=== PATIENT | male | born 1965 | race Caucasian/White ===

== ENCOUNTER 2016-08-06 23:19 | Outpatient (CLI) | payer MEDICAID | END 2016-08-06 23:20 | disposition critical access hospital (66) | DX: S09.90XA Unspecified injury of head, initial encounter (principal); V47.5XXA Car driver injured in collision with fixed or stationary object in traffic accident, initial encounter; Y92.414 Local residential or business street as the place of occurrence of the external cause | CPT/HCPCS: A0425; A0427 ==

== ENCOUNTER 2016-08-06 23:37 | Emergency (ER) | payer MEDICAID ==
[2016-08-07] MEDS ORDERED: TETANUS/DIPHTHERIA/PERTUSSIS 0.5 ML SYRINGE IM ONE ×2 (00:28→00:32)
[2016-08-07] MEDS ORDERED: IOPAMIDOL-300 100 ML VIAL IVP ONE (03:06)
== END 2016-08-07 03:25 | disposition home or self-care (01) ==
DX: S09.90XA Unspecified injury of head, initial encounter (principal); S00.81XA Abrasion of other part of head, initial encounter; S63.501A Unspecified sprain of right wrist, initial encounter; S89.82XA Other specified injuries of left lower leg, initial encounter; V47.0XXA Car driver injured in collision with fixed or stationary object in nontraffic accident, initial encounter; Z23 Encounter for immunization; R03.0 Elevated blood-pressure reading, without diagnosis of hypertension; F17.200 Nicotine dependence, unspecified, uncomplicated; K80.20 Calculus of gallbladder without cholecystitis without obstruction; Z86.73 Personal history of transient ischemic attack (TIA), and cerebral infarction without residual deficits
CPT/HCPCS: 36415; 70450; 71275; 72125; 73110; 73564; 74177; 80053; 80306; 80320; 81003; 83690; 85025; 90471; 90715; 99284; 99285; Q9967

== ENCOUNTER 2017-03-07 07:32 | Outpatient (CLI) | payer MEDICAID | END 2017-03-07 07:33 | disposition critical access hospital (66) | LOC: EMS 07:32 | PROVIDERS: ATTEND Surgery | DX: R20.0 Anesthesia of skin (principal); R53.1 Weakness | CPT/HCPCS: A0425; A0429 ==

== ENCOUNTER 2017-03-07 07:53 | Emergency (ER) | payer MEDICAID ==
[2017-03-07 08:05] VITALS: BP 115/91
--- NOTE | 2017-03-07 08:12 | ED Physician Documentation ---
PD HPI FOCAL NEURO - Stated complaint Stated Complaint: HAND NUMB - Chief complaint Chief Complaint: Ext Problem - History obtained from History obtained from: Patient - History of Present Illness Timing - onset: Last night Timing - duration: Hours (8) Timing - details: Abrupt onset (he had been sleeping and awoke with right arm weakness from shoulder down to fingers. No weakness of leg, face. No denies similar prior episodes.), Still present Severity of deficit: Moderate Weakness: Arm, Hand, Right. No: Face, Leg Numbness: Arm, Hand, Right. No: Face, Leg Associated symptoms: No: Headache, Nausea / vomiting, Syncope, Fall, Head injury Contributing factors: negative: Anticoagulated, Vascular dz Baseline status: positive: A&OX3, ambulatory, indep Similar symptoms before: Has not had sx before Recently seen: Not recently seen Review of Systems Constitutional: denies: Fever, Chills Cardiac: denies: Chest pain / pressure, Palpitations, Pedal edema, Calf pain Respiratory: denies: Dyspnea, Cough, Wheezing GI: denies: Vomiting, Diarrhea, Bloody / black stool Skin: denies: Rash, Lesions Neurologic: denies: Difficulty speaking, Near syncope, Altered mental status, Headache, Head injury PD PAST MEDICAL HISTORY - Past Medical History Cardiovascular: None Respiratory: None Neuro: None Endocrine/Autoimmune: None Psych: Depression, Anxiety, Other - Past Surgical History Past Surgical History: No - Present Medications Home Medications: Ambulatory Orders Medication Instructions Recorded Confirmed QUEtiapine [SEROquel] 1 tab PO DAILY 08/06/16 08/06/16 - Allergies Allergies/Adverse Reactions: Allergies Allergy/AdvReac Type Severity Reaction Status Date / Time No Known Drug Allergies Allergy Verified 08/06/16 23:55 - Living Situation Living Situation: reports: With family Living Arrangement: reports: At home - Social History Does the pt smoke?: Yes Smoking Status: Current every day smoker Does the pt drink ETOH?: Yes Does the pt have substance abuse?: No - Immunizations Immunizations are current?: Yes - POLST Patient has POLST: No PD ED PE NORMAL - Vitals Vital signs reviewed: Yes - General General: Alert and oriented X 3, Well developed/nourished, Other (smell of alcohol on breath, but able to talk sentences and ambulatory without ataxia. Supporting right arm with the other hand. 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 ) - Psych Psych: No: Normal affect (he is anxious about his arm being weak. ) Results - Vitals Vitals: Vital Signs - 24 hr 03/07/17 07:59 Temperature 36.6 C Heart Rate 76 Respiratory 16 Rate Blood Pressure 115/91 H O2 Saturation 98 Oxygen O2 Source Room air - Labs Labs: Laboratory Tests 03/07/17 03/07/17 08:59 08:59 WBC 9.9 RBC 4.98 Hgb 15.4 Hct 45.6 MCV 91.6 MCH 30.9 MCHC 33.7 RDW 13.7 Plt Count 257 MPV 8.5 Neut # 4.8 Lymph # 3.8 H [place] # 0.7 Eos # 0.3 Baso # 0.1 Absolute Nucleated RBC 0.00 Nucleated RBC % 0.0 Sodium 139 Potassium 3.9 Chloride 105 Carbon Dioxide 22 Anion Gap 12.0 BUN 9 Creatinine 0.6 Estimated GFR (MDRD) 143 Glucose 91 Calcium 9.1 Magnesium 2.2 Total Bilirubin 0.3 AST 17 ALT 13 Alkaline Phosphatase 46 Total Protein 7.8 Albumin 4.4 Globulin 3.4 Albumin/Globulin Ratio 1.3 Lipase 14 L PD MEDICAL DECISION MAKING - ED course Complexity details: reviewed results, considered differential (seems brachial nerve palsy, presume from malposition. He seems intoxicated and says he drinks regularly, with onset during sleep, so presume tractioned shoulder during sleep. No other deficitis (face, leg) and does not seem central cause. ), d/w patient Departure - Departure Disposition: 01 Home, Self Care Clinical Impression: Brachial plexus palsy Condition: Stable Record reviewed to determine appropriate education?: Yes Instructions: Palsy Brachial Plexus Ch Follow-Up: Francie Giron, PHILOSOPHY INSTRUCTOR [Primary Care Provider] - Comments: Use a sling for the arm for the next few days. This seems like a nerve irritation which commonly was from malposition during sleep. Usually this will take a few days to improve. Try not to move her shoulder around excessively as I will continue stretching the nerves in the shoulder. Recheck with your primary care if not improved over the next 2-3 days. Discharge Date/Time: 03/07/17 09:24
[2017-03-07 09:04] LABS: BASOPHILS # (AUTO) 0.1 10^3/uL (0.0-0.1); BASOPHILS % (AUTO) 1.5 %; EOSINOPHILS # (AUTO) 0.3 10^3/uL (0.0-0.7); EOSINOPHILS % (AUTO) 3.4 %; HCT - HEMATOCRIT 45.6 % (42.0-52.0); HGB - HEMOGLOBIN 15.4 g/dL (14.0-18.0); LYMPHOCYTES # (AUTO) 3.8 10^3/uL (1.5-3.5); LYMPHOCYTES % (AUTO) 38.7 %; MEAN CORPUSCULAR HEMOGLOBIN 30.9 pg (27.0-31.0); MEAN CORPUSCULAR HGB CONC 33.7 g/dL (32.0-36.0); MEAN CORPUSCULAR VOLUME 91.6 fL (80.0-94.0); MEAN PLATELET VOLUME 8.5 fL (7.4-11.4); MONOCYTES # (AUTO) 0.7 10^3/uL (0.0-1.0); MONOCYTES % (AUTO) 7.4 %; NEUTROPHILS # (AUTO) 4.8 10^3/uL (1.5-6.6); RED BLOOD COUNT 4.98 10^6/uL (4.70-6.10); RED CELL DISTRIBUTION WIDTH 13.7 % (12.0-15.0); UNCORRECTED WHITE BLOOD COUNT 9.9 x10^3/uL; WHITE BLOOD COUNT 9.9 x10^3/uL (4.8-10.8)
[2017-03-07 09:17] LABS: ALBUMIN/GLOBULIN RATIO 1.3 (1.0-2.2); BILIRUBIN,TOTAL 0.3 mg/dL (0.2-1.0); CALCIUM 9.1 mg/dL (8.5-10.3); CREATININE 0.6 mg/dL (0.6-1.2); MAGNESIUM 2.2 mg/dL (1.7-2.8); POTASSIUM 3.9 mmol/L (3.5-5.0); TOTAL PROTEIN 7.8 g/dL (6.7-8.2)
== END 2017-03-07 09:24 | disposition home or self-care (01) ==
LOC: EDUNIT# → ED 07:53
DX: G54.0 Brachial plexus disorders (principal); F17.200 Nicotine dependence, unspecified, uncomplicated
CPT/HCPCS: 36415; 80053; 83690; 83735; 85025; 99283

== ENCOUNTER 2017-07-19 18:59 | Inpatient (IN) | payer SELFPAY ==
--- NOTE | 2017-07-19 19:34 | ED Physician Documentation ---
PD HPI CHEST PAIN - Stated complaint Stated Complaint: POSS CARDIAC ISSUE - Chief complaint Chief Complaint: Cardiac - History obtained from History obtained from: Patient - History of Present Illness Timing - onset: How many days ago (He had onset 3 days ago of some substernal chest pain associated with a feeling of lightheadedness and some palpitations and feeling the heart rate fast. This is been intermittent in severity over the last 3 days. However he has had consistent feeling of his heart rate going fast. He has had general lightheadedness. He has not had any syncope. Prior to that he had had upper respiratory infection with significant coughing, nausea , congestion and less appetite. He has had upper respiratory symptoms which she attributed to a flu for about 3 weeks total with the cough being prominent in the last week. He does not have any history of irregular heartbeats in the past.) Timing - onset during: Light activity Timing - duration: Days (3) Timing - details: Abrupt onset, Still present, Waxing and waning Quality: Tightness, Aching. No: Pressure Location: Substernal Radiation: Back Improved by: No: Rest Worsened by: Exertion Associated symptoms: Feeling faint / dizzy, General Weakness, Palpitations, Cough. No: Shortness of air, Nausea, Vomiting Similar symptoms before: Has not had sx before Recently seen: Not recently seen Review of Systems Constitutional: reports: Chills, Myalgias, Fatigue. denies: Fever Nose: reports: Congestion. denies: Rhinorrhea / runny nose Throat: denies: Sore throat Cardiac: reports: Chest pain / pressure, Palpitations. denies: Pedal edema, Calf pain Respiratory: reports: Cough, Wheezing. denies: Dyspnea GI: reports: Nausea. denies: Abdominal Pain, Vomiting, Diarrhea : denies: Dysuria, Frequency Skin: denies: Rash Musculoskeletal: denies: Back pain, Extremity swelling Neurologic: reports: Generalized weakness. denies: Focal weakness, Numbness, Near syncope Psychiatric: reports: Anxiety, Insomnia Endocrine: denies: Weight loss PD PAST MEDICAL HISTORY - Past Medical History Cardiovascular: None Respiratory: None Neuro: None Endocrine/Autoimmune: None Psych: Depression, Anxiety, Other - Past Surgical History Past Surgical History: No - Present Medications Home Medications: Ambulatory Orders Medication Instructions Recorded Confirmed QUEtiapine [SEROquel] 1 tab PO DAILY 08/06/16 08/06/16 Dextroamphetamine/Amphetamine 07/19/17 [Adderall 20 mg Tablet] - Allergies Allergies/Adverse Reactions: Allergies Allergy/AdvReac Type Severity Reaction Status Date / Time No Known Drug Allergies Allergy Verified 07/19/17 19:20 - Social History Does the pt smoke?: Yes Smoking Status: Current every day smoker Does the pt drink ETOH?: Yes Does the pt have substance abuse?: No - Family History Family history: denies: CAD, Venous thromboembolism - Immunizations Immunizations are current?: Yes - POLST Patient has POLST: No PD ED PE NORMAL - Vitals Vital signs reviewed: Yes - General General: Alert and oriented X 3, No acute distress (but is somewhat anxious), Well developed/nourished - HEENT HEENT: Ears normal, Pharynx benign. No: Moist mucous membranes - Neck Neck: Supple, no meningeal sign, No adenopathy - Cardiac Cardiac: No murmur. No: RRR (fast rate 160-180 and irregular. ) - Respiratory Respiratory: Clear bilaterally - Abdomen Abdomen: Soft, Non tender - Male Male : Deferred - Rectal Rectal: Deferred - Back Back: No CVA TTP - Derm Derm: Normal color, Warm and dry, No rash - Extremities Extremities: No deformity, No tenderness to palpate, Normal ROM s pain, No edema , No calf tenderness / cord - Neuro Neuro: Alert and oriented X 3, No motor deficit, Normal speech - Psych Psych: Normal mood. No: Normal affect (moderately anxious) Results - Vitals Vitals: Vital Signs - 24 hr 07/19/17 07/19/17 07/19/17 19:08 20:00 20:05 Temperature 37.2 C Heart Rate 180 H 136 H 159 H Respiratory 20 20 20 Rate Blood Pressure 131/96 H 123/79 126/93 H O2 Saturation 97 100 100 07/19/17 07/19/17 07/19/17 20:10 20:20 20:25 Temperature Heart Rate 150 H 137 H 128 H Respiratory 20 18 19 Rate Blood Pressure 128/74 128/93 H 126/87 H O2 Saturation 99 99 100 07/19/17 07/19/17 07/19/17 20:40 20:45 20:50 Temperature Heart Rate 119 H 113 H 130 H Respiratory 20 18 21 Rate Blood Pressure 112/82 H 119/95 H 114/86 H O2 Saturation 100 99 100 07/19/17 07/19/17 20:55 21:46 Temperature Heart Rate 111 H 106 H Respiratory 20 18 Rate Blood Pressure 115/82 H 111/79 O2 Saturation 99 95 Oxygen O2 Source Room air - EKG (time done) 19:16 Rate: Rate (enter#) (163) Rhythm: Atrial fibrillation [place]: Normal QRS: Normal Ischemia: Normal ST segments. No: ST elevation c/w ischemia, ST depression, T wave inversion Compare to prior EKG: Old EKG unavailable - Labs Labs: Laboratory Tests 07/19/17 07/19/17 07/19/17 19:55 19:55 19:55 WBC RBC Hgb Hct MCV MCH MCHC RDW Plt Count MPV Neut # Lymph # [place] # Eos # Baso # Absolute Nucleated RBC Nucleated RBC % Sodium 139 Potassium 3.6 Chloride 102 Carbon Dioxide 25 Anion Gap 12.0 BUN 14 Creatinine 0.6 Estimated GFR (MDRD) 142 Glucose 94 Calcium 9.5 Magnesium 1.6 L Total Bilirubin 0.9 AST 17 ALT 12 Alkaline Phosphatase 40 L Troponin I < 0.04 B-Natriuretic Peptide 96 Total Protein 7.7 Albumin 4.2 Globulin 3.5 Albumin/Globulin Ratio 1.2 Lipase < 10 L 07/19/17 20:19 WBC 13.3 H RBC 4.81 Hgb 14.4 Hct 43.7 MCV 90.9 MCH 30.0 MCHC 33.0 RDW 14.3 Plt Count 212 MPV 10.0 Neut # 7.0 H Lymph # 4.2 H [place] # 1.6 H Eos # 0.3 Baso # 0.3 H Absolute Nucleated RBC 0.02 Nucleated RBC % 0.2 Sodium Potassium Chloride Carbon Dioxide Anion Gap BUN Creatinine Estimated GFR (MDRD) Glucose Calcium Magnesium Total Bilirubin AST ALT Alkaline Phosphatase Troponin I B-Natriuretic Peptide Total Protein Albumin Globulin Albumin/Globulin Ratio Lipase - Rads (name of study) chest Radiology: Prelim report reviewed (no acute process; some hyperinflation c/w lung disease) PD MEDICAL DECISION MAKING - ED course Complexity details: considered differential (he is not in failure and no ischemic changes on ECG/Troponin. Heart rate slowed with IV meds and will have some regular beats at times, but does nto convert. Heart rate down to about 100- 110, still irregular, and BP is good. He is stable at this point. Needs further treatment. Given the likely 3 day duration of this, I would not do cardioversion at this time without ECHO or such. ), d/w patient Departure - Departure Disposition: ED Place in Observation Clinical Impression: Atrial fibrillation with rapid ventricular response, Hypokalemia, Hypomagnesemia Upper respiratory infection Qualifiers: URI type: unspecified URI Qualified Code(s): J06.9 - Acute upper respiratory infection, unspecified Condition: Stable Record reviewed to determine appropriate education?: Yes
[2017-07-19] MEDS ORDERED: diltiaZEM INJ 5 MG/ML VIAL IVP STA ×3 (19:49→21:30)
[2017-07-19] MEDS ORDERED: SODIUM CHLORIDE 0.9% 1,000 ML IV ONE ×3 (19:49→21:55)
[2017-07-19] MEDS ORDERED: LORazepam 2 MG/ML VIAL IVP STA (19:50)
[2017-07-19 20:05] LABS: BASOPHILS # (AUTO) 0.3 10^3/uL (0.0-0.1); BASOPHILS % (AUTO) 2.2 %; EOSINOPHILS # (AUTO) 0.3 10^3/uL (0.0-0.7); EOSINOPHILS % (AUTO) 2.1 %; HGB - HEMOGLOBIN 14.4 g/dL (14.0-18.0); LYMPHOCYTES # (AUTO) 4.2 10^3/uL (1.5-3.5); LYMPHOCYTES % (AUTO) 31.2 %; MEAN CORPUSCULAR VOLUME 90.9 fL (80.0-94.0); MONOCYTES # (AUTO) 1.6 10^3/uL (0.0-1.0); MONOCYTES % (AUTO) 12.2 %; NEUTROPHILS % (AUTO) 52.3 %; PLT - PLATELET COUNT 212 10^3/uL (130-450); RED BLOOD COUNT 4.81 10^6/uL (4.70-6.10); RED CELL DISTRIBUTION WIDTH 14.3 % (12.0-15.0); WHITE BLOOD COUNT 13.3 x10^3/uL (4.8-10.8)
[2017-07-19 20:23] LABS: ALBUMIN 4.2 g/dL (3.2-5.5); ALBUMIN/GLOBULIN RATIO 1.2 (1.0-2.2); ALKALINE PHOSPHATASE 40 IU/L (42-121); ALT ALANINE AMINOTRANSFERASE 12 IU/L (10-60); AST ASPARTATE AMINOTRANSFERASE 17 IU/L (10-42); BILIRUBIN,TOTAL 0.9 mg/dL (0.2-1.0); BUN - BLOOD UREA NITROGEN 14 mg/dL (6-20); CALCIUM 9.5 mg/dL (8.5-10.3); CARBON DIOXIDE - CO2 25 mmol/L (21-32); CHLORIDE 102 mmol/L (101-111); CREATININE 0.6 mg/dL (0.6-1.2); GFR - MDRD 142 (>89); GLUCOSE 94 mg/dL (70-100); LIPASE < 10 U/L (22-51); MAGNESIUM 1.6 mg/dL (1.7-2.8); SODIUM 139 mmol/L (135-145); TOTAL PROTEIN 7.7 g/dL (6.7-8.2)
[2017-07-19] MEDS ORDERED: MAGNESIUM SULFATE 2 GRAM 2 GM/50 ML BAG IV ONE (20:26)
[2017-07-19] MEDS ORDERED: POTASSIUM BICARB 25 MEQ TABLET PO STA (20:26)
--- NOTE | 2017-07-19 20:40 | XRAY Preliminary Report ---
Exam: XR CHEST 1 VIEW X-RAY IMPRESSION: No acute cardiopulmonary abnormality with findings suggestive of COPD. [facility] SITE ID: [id number]
--- NOTE | 2017-07-19 20:43 | XRAY Report ---
EXAM: CHEST RADIOGRAPHY EXAM DATE: 07/19/2017 08:04 PM. CLINICAL HISTORY: Cough and dyspnea; new onset atrial fibrillation. COMPARISON: CTA of the chest, abdomen and pelvis 08/07/2016. TECHNIQUE: 1 view. FINDINGS: Lungs/Pleura: No focal consolidation. Lung volumes are large with flattening of the diaphragm suggest jennifer of COPD. Minimal scarring at the apices, right greater than left. No significant pleural effusion . No pneumothorax. Mediastinum: Within exam limitations, the cardiomediastinal contour is normal. Other: None. IMPRESSION: No acute cardiopulmonary abnormality with findings suggestive of COPD. [facility] Referring Provider Line: [phone] SITE ID: [id number]
[2017-07-19] MEDS ORDERED: SODIUM CHLORIDE FLUSH 0.9% 10 ML SYRINGE IVP PRN (22:05)
[2017-07-19] MEDS ORDERED: QUEtiapine 25 MG TABLET PO PRN (22:09)
[2017-07-19] MEDS ORDERED: DIGOXIN 500 MCG/2 ML AMP IVP STA (22:11)
--- NOTE | 2017-07-19 22:22 | HISTORY & PHYSICAL EXAMINATION ---
Chief Complaint - Chief Complaint Chief Complaint: Dizziness, shortness of breath, and chest palpitations. History of Present Illness - Admitted From Admitted From:: Home - History Obtained From Records Reviewed: Yes History obtained from: Patient - History of Present Illness HPI Comment/Other: Mr. Sony Looney is a very pleasant 52-year-old gentleman who has a history of some shortness of breath and dyspnea for several weeks. This past Saturday he experienced some new chest pain upon awakening and he has had a significant cough for most of the month now. Patient also had upper respiratory infection symptoms last week. He came to the [facility] emergency department this afternoon/evening and was found to be in new onset atrial fibrillation with rates as high as the 180s. History - Past Medical History Cardiovascular: reports: None Respiratory: reports: None Neuro: reports: None Endocrine/Autoimmune: reports: None GI: reports: None : reports: None HEENT: reports: None Psych: reports: Depression, Anxiety, Other Musculoskeletal: reports: None Derm: reports: None MRSA Hx?: No - POLST Patient has POLST: No Meds/Allgy - Home Medications Home Medications: Ambulatory Orders Medication Instructions Recorded Confirmed QUEtiapine [SEROquel] 1 tab PO DAILY 08/06/16 08/06/16 Dextroamphetamine/Amphetamine 07/19/17 [Adderall 20 mg Tablet] - Allergies Allergies/Adverse Reactions: Allergies Allergy/AdvReac Type Severity Reaction Status Date / Time cephalexin [From Keflex] AdvReac Nausea Verified 07/20/17 00:52 Review of Systems - Constitutional Constitutional: reports: Fatigue. denies: Fever, Chills, Malaise, Weakness, Night sweats - Eyes Eyes: denies: Pain, Irritation, Blurred vision, Dipolpia - Ears, Nose & Throat Ears, Nose & Throat: denies: Ear pain, Hearing loss, Hearing aids, Tinnitus, Vertigo, Nasal pain, Nasal discharge - Cardiovascular Cariovascular: reports: Irregular heart rate, Palpitations, Exertional dyspnea. denies: Chest pain, Edema, Lightheadedness, Syncope - Respiratory Respiratory: reports: SOB with exertion. denies: Cough, Sputum production, Wheezing, Snoring, Hemoptysis, Orthopnea, SOB at rest - Gastrointestinal Gastrointestinal: denies: Abdominal pain, Abdominal distention, Constipation, Diarrhea, Change in bowel habits, Rectal bleeding - Genitourinary Genitourinary: denies: Dysuria, Frequency, Urgency, Hematuria - Musculoskeletal Musculoskeletal: denies: Muscle pain, Back pain, Muscle aches, Stiffness - Integumentary Integumentary: denies: Rash, Pruritis, Lesions, Dryness - Neurological Neurological: denies: General weakness, Focal weakness, Headache, Dizziness - Psychiatric Psychiatric: denies: Depression, Anxiety, Suicidal, Hallucinations - Endocrine Endocrine: denies: Polyuria, Polydypsia, Polyphagia - Hematologic/Lymphatic Hematologic/Lymphatic: denies: Anemia, Bruising, Lymphadenopathy - All Other Systems All Other Systems: reports: Reviewed and negative Exam - Vital Signs Reviewed Vital Signs: Yes Vital Signs: Vital Signs x48h Temp Pulse Resp BP Pulse Ox 07/19/17 22:13 86 20 105/86 H 98 07/19/17 21:46 106 H 18 111/79 95 07/19/17 20:55 111 H 20 115/82 H 99 07/19/17 20:50 130 H 21 114/86 H 100 07/19/17 20:45 113 H 18 119/95 H 99 07/19/17 20:40 119 H 20 112/82 H 100 07/19/17 20:25 128 H 19 126/87 H 100 07/19/17 20:20 137 H 18 128/93 H 99 07/19/17 20:10 150 H 20 128/74 99 07/19/17 20:05 159 H 20 126/93 H 100 07/19/17 20:00 136 H 20 123/79 100 07/19/17 19:08 37.2 C 180 H 20 131/96 H 97 - Physical Exam General Appearance: positive: No acute distress, Alert Eyes Bilateral: positive: Normal inspection, PERRL, EOMI, No lid inflammation, Conjunctivae nml, No scleral icterus ENT: positive: ENT inspection nml, Pharynx nml, No signs of dehydration Neck: positive: Nml inspection, Thyroid nml, No JVD, Trachea midline. negative : Thyromegaly Respiratory: positive: Chest non-tender, No respiratory distress, Breath sounds nml. negative: Wheezes, Rales, Rhonchi Cardiovascular: positive: No murmur, No gallop, Irregularly irregular Peripheral Pulses: positive: 2+ Abdomen: positive: Non-tender, No organomegaly, Nml bowel sounds, No distention. negative: Guarding, Rebound Back: positive: Nml inspection. negative: CVA tenderness (R), CVA tenderness (L ) Skin: positive: Color nml, No rash, Warm, Dry. negative: Cyanosis Extremities: positive: Non-tender, Full ROM, Nml appearance, No pedal edema Neurologic/Psychiatric: positive: Oriented x3, CN's nml (2-12), Motor nml, Sensation nml, Mood/affect nml Conclusion/Plan - Problem List (1) Atrial fibrillation with rapid ventricular response Conclusion/Plan: This is a new condition for the patient. He has received multiple doses of diltiazem in the emergency department and this has helped with his rate control however he still remains in atrial fibrillation. I will load him on digoxin and monitor him closely for signs of conversion to a sinus rhythm. There are no signs of any type of heart failure, and his only other abnormalities at this time are an elevated white blood cell count which may be related to the new onset atrial fibrillation (as a stress response) and a slightly low magnesium level. I will correct the magnesium and will monitor the patient and the patient's white blood cell count for signs of infection. (2) Hypomagnesemia Conclusion/Plan: WIll correct. Doubt that this is cause of the new onset Afib. (3) Anxiety, generalized Conclusion/Plan: The patient reportedly takes Adderall for anxiety, suggesting that he may have ADD. At any rate I believe that giving Adderall to a patient who is newly in atrial fibrillation may be contraindicated. Will monitor him closely and if he has complaints of anxiety we will give him low-dose Seroquel (which he takes at home at bedtime for sleep). - Lab Results Lab results reviewed: Yes Fish Bones: 07/19/17 20:19 07/19/17 19:55 - Diagnostic Imaging Results Diagnostic Imaging Results: positive: Final report reviewed Diagnostic Imaging Results Comments: EXAM: CHEST RADIOGRAPHY EXAM DATE: 07/19/2017 08:04 PM. CLINICAL HISTORY: Cough and dyspnea; new onset atrial fibrillation. COMPARISON: CTA of the chest, abdomen and pelvis 08/07/2016. TECHNIQUE: 1 view. FINDINGS: Lungs/Pleura: No focal consolidation. Lung volumes are large with flattening of the diaphragm suggestive of COPD. Minimal scarring at the apices, right greater than left. No significant pleural effusion. No pneumothorax. Mediastinum: Within exam limitations, the cardiomediastinal contour is normal. Other: None. IMPRESSION: No acute cardiopulmonary abnormality with findings suggestive of COPD. - EKG Results EKG Interpreted Independently: Yes EKG Comparison: Changed from prior EKG Core Measures - Anticipated LOS I expect patient to be DC'd or transferred within 96 hours.: Yes - DVT/VTE - Prophylaxis VTE/DVT Device ordered at admit?: Yes
[2017-07-19] MEDS: D5.45NS W/20 MEQ KCL 1,000 ML IV SCH (23:51)
[2017-07-20] MEDS: SODIUM CHLORIDE FLUSH 0.9% 10 ML SYRINGE IVP SCH ×2 (05:25→10:20)
[2017-07-20] MEDS ORDERED: diltiaZEM CD 120 MG CAPSULE PO SCH (09:00)
[2017-07-20] MEDS ORDERED: POLYETHYLENE GLYCOL 3350 17 GM PACKET PO SCH (09:00)
[2017-07-20] MEDS: NICOTINE 21 MG PATCH TOP SCH ×2 (09:26→10:20)
[2017-07-20] MEDS: D5.45NS W/20 MEQ KCL 1,000 ML IV SCH (10:20)
--- NOTE | 2017-07-20 15:27 | Discharge Plan ---
Discharge Plan Disposition: Home, Self Care Condition: Stable Prescriptions: diltiaZEM [Cardizem] 60 mg PO ONCE PRN #30 tablet PRN Reason: Per Physician Order Diet: Regular Activity Restrictions: No Restrictions Shower Restrictions: No Driving Restrictions: No Instruction Topics: Atrial Fibrillation Additional Instructions or Follow Up instructions: Stop taking Adderall until it is OK'd by your doctor to be restarted. Start taking 1 aspirin (baby dose of 81 mg) daily. You need an appointment for a stress test to evaluate for coronary artery disease. Your doctor should order this for you. Take 1 tablet of the new prescription (Cardizem), if you get the palpitations. 2 tablets a day is maximum amount you can take. No Smoking: If you smoke, Please STOP! Call for help. Follow-up with: Francie Giron FNP [Primary Care Provider] -
[2017-07-20 16:18] VITALS: BP 157/69
== END 2017-07-20 16:05 | disposition home or self-care (01) | DRG 310 ==
LOC: ED 18:59 → MS2 22:05
PROVIDERS: ADMIT Hospitalist; ATTEND Hospitalist
DX: I48.91 Unspecified atrial fibrillation (principal); E83.42 Hypomagnesemia; F41.9 Anxiety disorder, unspecified; E87.6 Hypokalemia; J06.9 Acute upper respiratory infection, unspecified
CPT/HCPCS: 36415; 71045; 80053; 83690; 83735; 83880; 84443; 84484; 85025; 93005; 93306; 96361; 96365; 96375; 96376; 99285

== ENCOUNTER 2017-08-20 00:36 | Emergency (ER) | payer SELFPAY ==
[2017-08-20 00:46] VITALS: BP 138/92
--- NOTE | 2017-08-20 01:24 | XRAY Report ---
EXAM: RIGHT SHOULDER RADIOGRAPHY EXAM DATE: 08/20/2017 01:07 AM. CLINICAL HISTORY: Fall, shoulder and proximal humerus pain. COMPARISON: None. TECHNIQUE: 3 views. FINDINGS: Bones: There is fracture of the proximal right humerus. Main fracture line is through the surgical ne ck. There is fracture extending through the tuberosities. Joints: No evidence of dislocation. Soft Tissues: No unexpected soft tissue findings. IMPRESSION: There is fracture of the proximal right humerus. The fracture line through the surgical n aga with extent through the tuberosities. No evidence of dislocation. [facility] Referring Provider Line: [phone] SITE ID: [id number]
--- NOTE | 2017-08-20 01:32 | ED Physician Documentation ---
PD HPI UPPER EXT INJURY - Stated complaint Stated Complaint: R ARM PAIN - Chief complaint Chief Complaint: Trauma Ext - History obtained from History obtained from: Patient - History of Present Illness Location: Right, Shoulder Type of injury: Fall Where injury occurred: Home Timing - onset: Today Timing - details: Abrupt onset, Still present Worsened by: Moving, Palpating Similar symptoms before: Has not had sx before Recently seen: Not recently seen - Additonal information Additional information: Patient is a 52 year old male presenting to the emergency department for abdominal pain. Patient was drinking when he fell backwards on his outstretched arm hurting his right shoulder. patient denies any other trauma. patient waited a few hours but his pain did not get any better so he came to the emergeny department for evaluation. Review of Systems Ten Systems: 10 systems reviewed and negative Musculoskeletal: reports: Extremity pain, Joint pain, Extremity swelling Neurologic: denies: Focal weakness, Numbness PD PAST MEDICAL HISTORY - Past Medical History Cardiovascular: None Respiratory: None Neuro: None Endocrine/Autoimmune: None GI: None : None HEENT: None Psych: Depression, Anxiety, Other Musculoskeletal: None Derm: None - Past Surgical History Past Surgical History: No - Present Medications Home Medications: Ambulatory Orders Medication Instructions Recorded Confirmed QUEtiapine [SEROquel] 50 mg PO DAILY 08/06/16 07/20/17 [email or web address] [Cardizem] 60 mg PO ONCE PRN #30 tablet 07/20/17 Dextroamphetamine/Amphetamine 40 mg PO DAILY 08/20/17 08/20/17 [Adderall 10 mg Tablet] Oxycodone HCl/Acetaminophen 1 - 2 each PO Q6H PRN #7 tablet 08/20/17 [Percocet 5-325 mg Tablet] - Allergies Allergies/Adverse Reactions: Allergies Allergy/AdvReac Type Severity Reaction Status Date / Time cephalexin [From Keflex] AdvReac Nausea Verified 08/20/17 00:46 - Social History Does the pt smoke?: Yes Smoking Status: Current every day smoker Does the pt drink ETOH?: Yes Does the pt have substance abuse?: No - Immunizations Immunizations are current?: Yes - POLST Patient has POLST: No PD ED PE EXPANDED - General General: Alert, In Pain - Extremities Extremities: Right shoulder (gross deformity of right upper extremity ) Results - Vitals Vitals: Vital Signs - 24 hr 08/20/17 00:42 Temperature 36.2 C L Heart Rate 81 Respiratory 22 Rate Blood Pressure 138/92 H O2 Saturation 98 Oxygen O2 Source Room air - Rads (name of study) shoulder Radiology: Final report received (humeral head fracture) PD MEDICAL DECISION MAKING - ED course Complexity details: reviewed old records, reviewed results, re-evaluated patient , considered differential, d/w patient, d/w business consultant ED course: patient was seen and examined at bedside. Imaging was ordered. When patient returned the results were reviewed and discussed with director of pupil personnel program ortho Dr. Moreno who recommended splinting and outpatient follow up. Patient smelled heavily of alcohol so sedative medications were not appropriate at this time. Prescriptions were written. and patient was placed in a shoulder immobilizer with additional elastic bandages. Patient required no further inpatient work up and was stable for discharge home. Departure - Departure Disposition: 01 Home, Self Care Clinical Impression: Humerus head fracture Condition: Good Instructions: ED Fx Upper Ext Follow-Up: Marco Moreno MD [Provider Admit Priv/Credential] - Prescriptions: Oxycodone HCl/Acetaminophen [Percocet 5-325 mg Tablet] 1 - 2 each PO Q6H PRN #7 tablet PRN Reason: pain Comments: Your symptoms today are being caused by a fractured humerus. You should wear the brace for comfort. You should ice your shoulder at least 4 times a day and try to keep it elevated. You should call the office tomorrow to schedule a follow up appointment. You can take tylenol for pain and an occasional percocet for breakthrough pain. You should return to the emergency department for loss of pulses, loss of feeling in your hand or uncontrollable symptoms. Discharge Date/Time: 08/20/17 01:52
== END 2017-08-20 01:52 | disposition home or self-care (01) ==
LOC: ED 00:36
DX: S42.294A Other nondisplaced fracture of upper end of right humerus, initial encounter for closed fracture (principal); W18.39XA Other fall on same level, initial encounter; Y92.009 Unspecified place in unspecified non-institutional (private) residence as the place of occurrence of the external cause; F17.200 Nicotine dependence, unspecified, uncomplicated
CPT/HCPCS: 99283

== ENCOUNTER 2017-08-20 02:31 | Emergency (ER) | payer SELFPAY ==
[2017-08-20 02:33] VITALS: BP 145/107
[2017-08-20] MEDS ORDERED: ACETAMINOPHEN 500 MG TABLET PO STA (02:35)
--- NOTE | 2017-08-20 02:39 | ED Physician Documentation ---
PD HPI UPPER EXT INJURY - Stated complaint Stated Complaint: R ARM PAIN - Chief complaint Chief Complaint: Trauma Ext - History obtained from History obtained from: Patient - History of Present Illness Location: Right, Shoulder, Arm Type of injury: Fall Where injury occurred: Home Timing - onset: Today Timing - details: Abrupt onset Worsened by: Moving, Palpating Similar symptoms before: Work up / diagnostics, Treatment Recently seen: Emergency Dept - Additonal information Additional information: Patient is a 52 year old male who was just diagnosed with a humeral head fracture and was discharged in a splint who checked back in because he wanted more pain medications. Patient smelled of alcohol and had prescription written for percocet. Patient had no other trauma in the meantime. Review of Systems Ten Systems: 10 systems reviewed and negative Musculoskeletal: reports: Extremity pain, Joint pain, Extremity swelling Neurologic: denies: Focal weakness, Numbness PD PAST MEDICAL HISTORY - Past Medical History Cardiovascular: None Respiratory: None Neuro: None Endocrine/Autoimmune: None GI: None : None HEENT: None Psych: Depression, Anxiety, Other Musculoskeletal: None Derm: None - Past Surgical History Past Surgical History: No - Present Medications Home Medications: Ambulatory Orders Medication Instructions Recorded Confirmed QUEtiapine [SEROquel] 50 mg PO DAILY 08/06/16 07/20/17 [email or web address] [Cardizem] 60 mg PO ONCE PRN #30 tablet 07/20/17 Dextroamphetamine/Amphetamine 40 mg PO DAILY 08/20/17 08/20/17 [Adderall 10 mg Tablet] Oxycodone HCl/Acetaminophen 1 - 2 each PO Q6H PRN #7 tablet 08/20/17 [Percocet 5-325 mg Tablet] - Allergies Allergies/Adverse Reactions: Allergies Allergy/AdvReac Type Severity Reaction Status Date / Time cephalexin [From Keflex] AdvReac Nausea Verified 08/20/17 00:46 - Social History Does the pt smoke?: Yes Smoking Status: Current every day smoker Does the pt drink ETOH?: Yes Does the pt have substance abuse?: No - Immunizations Immunizations are current?: Yes - POLST Patient has POLST: No PD ED PE NORMAL - Vitals Vital signs reviewed: Yes - General General: Alert and oriented X 3 - HEENT HEENT: Atraumatic - Neck Neck: No bony TTP - Cardiac Cardiac: RRR - Respiratory Respiratory: No respiratory distress - Abdomen Abdomen: Non distended - Neuro Neuro: Alert and oriented X 3 Eye Opening: Spontaneous Motor: Obeys Commands Verbal: Oriented GCS Score: 15 PD ED PE EXPANDED - Extremities Extremities: Right shoulder (right shoulder pain and deformity), Sensory intact , Vascular intact, Tendon intact Results - Vitals Vitals: Vital Signs - 24 hr 08/20/17 02:32 Temperature 36.4 C L Heart Rate 89 Respiratory 20 Rate Blood Pressure 145/107 H O2 Saturation 92 Oxygen O2 Source Room air PD MEDICAL DECISION MAKING - ED course Complexity details: reviewed old records, reviewed results, re-evaluated patient , considered differential, d/w patient ED course: Patient was seen and examined at bedside. Patient was told he would be treated with tylenol and an ice pack and he could fill his prescriptions in the morning after reaching full sobriety. Patient became agitated and threatening. Patient had a simple, non-displaced fracture and was stable for discharge with outpatient follow up. Departure - Departure Disposition: 01 Home, Self Care Clinical Impression: Humerus head fracture Condition: Good Instructions: ED Fx Upper Ext Follow-Up: Marco Moreno MD [Provider Admit Priv/Credential] - Comments: Your symptoms are being caused by a fracture in your arm. You should ice your arm and take tylenol as needed for pain and an occasional percocet for breakthrough pain. You should follow up with the orthopedic group in the morning for further evaluation and care. You should return to the emergency department for loss of pulses, numbness, tingling or new onset weakness. Discharge Date/Time: 08/20/17 02:46
== END 2017-08-20 02:46 | disposition home or self-care (01) ==
LOC: ED 02:31
DX: S42.294A Other nondisplaced fracture of upper end of right humerus, initial encounter for closed fracture (principal); W18.39XA Other fall on same level, initial encounter; Y92.009 Unspecified place in unspecified non-institutional (private) residence as the place of occurrence of the external cause; F17.200 Nicotine dependence, unspecified, uncomplicated
CPT/HCPCS: 73030; 99282; 99283; A9270

== ENCOUNTER 2017-12-14 15:51 | Emergency (ER) | payer OTHER ==
--- NOTE | 2017-12-14 16:26 | ED Physician Documentation ---
PD HPI BACK INJURY - Stated complaint Stated Complaint: BACK PX - History obtained from History obtained from: Patient - History of Present Illness Location: Lower (He was lifting a refrigerator and felt a pop in his low back with moderate mid low back pain that does not radiate. No weakness, numbness, or tingling of the saddle area or extremities. No incontinence. He has not had back problems before. This happened just prior to arrival around half an hour ago.) Review of Systems Constitutional: reports: Reviewed and negative Cardiac: reports: Reviewed and negative Respiratory: reports: Reviewed and negative PD PAST MEDICAL HISTORY - Past Medical History Cardiovascular: None Respiratory: None Endocrine/Autoimmune: None GI: None : None HEENT: None Psych: Depression, Anxiety, Other Musculoskeletal: None Derm: None - Past Surgical History Past Surgical History: No - Present Medications Home Medications: Ambulatory Orders Medication Instructions Recorded Confirmed QUEtiapine [SEROquel] 50 mg PO DAILY 08/06/16 07/20/17 [email or web address] [Cardizem] 60 mg PO ONCE PRN #30 tablet 07/20/17 Dextroamphetamine/Amphetamine 40 mg PO DAILY 08/20/17 08/20/17 [Adderall 10 mg Tablet] Oxycodone HCl/Acetaminophen 1 - 2 each PO Q6H PRN #7 tablet 08/20/17 [Percocet 5-325 mg Tablet] HYDROcod/ACETAM 5/325 [[place] 5/325] 1 - 2 ea PO Q6H PRN #15 tablet 12/14/17 Ibuprofen [Motrin] 800 mg PO Q8H PRN #30 tablet 12/14/17 - Allergies Allergies/Adverse Reactions: Allergies Allergy/AdvReac Type Severity Reaction Status Date / Time cephalexin [From Keflex] AdvReac Nausea Verified 08/20/17 00:46 - Social History Does the pt smoke?: Yes Smoking Status: Current every day smoker Does the pt drink ETOH?: Yes Does the pt have substance abuse?: No - Immunizations Immunizations are current?: Yes - POLST Patient has POLST: No PD ED PE NORMAL - Vitals Vital signs reviewed: Yes - General General: Alert and oriented X 3, No acute distress - Back Back: Other (Focally tender over I think L4. Otherwise no midline lumbar spine tenderness. The patient has equal and normal Achilles and patellar reflexes bilaterally. Normal sensation in all areas of the legs. Patient denies saddle anesthesia. Normal strength in flexion-extension at the ankles, knees, and flexion of the hips.) - Neuro Neuro: Alert and oriented X 3, Normal speech Results - Vitals Vitals: Vital Signs - 24 hr 12/14/17 15:57 Temperature 36.6 C Heart Rate 124 H Respiratory 18 Rate Blood Pressure 171/102 H O2 Saturation 98 Oxygen O2 Source Room air - Rads (name of study) LS XR Radiology: EMP read contemporaneously (L5 superior endplate compression fracture of unclear chronicity.) PD MEDICAL DECISION MAKING - Sepsis Event Vital Signs: Vital Signs - 24 hr 12/14/17 15:57 Temperature 36.6 C Heart Rate 124 H Respiratory 18 Rate Blood Pressure 171/102 H O2 Saturation 98 Oxygen O2 Source Room air Departure - Departure Disposition: 01 Home, Self Care Clinical Impression: Compression fracture of L5 lumbar vertebra Qualifiers: Encounter type: initial encounter Fracture type: closed Qualified Code(s): S32.050A - Wedge compression fracture of fifth lumbar vertebra, initial encounter for closed fracture Condition: Good Record reviewed to determine appropriate education?: Yes Instructions: ED Fx Comp Vertebral Prescriptions: HYDROcod/ACETAM 5/325 [[place] 5/325] 1 - 2 ea PO Q6H PRN #15 tablet PRN Reason: Pain Ibuprofen [Motrin] 800 mg PO Q8H PRN #30 tablet PRN Reason: PAIN &/OR FEVER Comments: Recheck with your doctor in a week, recheck blood pressure at that time as it was quite high today. Your blood pressure was elevated today on check into the emergency department. This does not mean that you have hypertension, it is a common phenomenon to come to the emergency department and have elevated blood pressure. I recommend that you see your primary care physician within the week to have it rechecked when you are feeling better. Forms: Activity restrictions
--- NOTE | 2017-12-14 17:02 | XRAY Report ---
Procedure Date: 12/14/2017 Accession Number: [id number] / [id number] Procedure: XR - Lumbar Spine 2 View CPT Code: FULL RESULT: EXAM: LUMBOSACRAL SPINE RADIOGRAPHY EXAM DATE: 12/14/2017 04:27 PM. CLINICAL HISTORY: Back injury. COMPARISONS: 08/07/2016. TECHNIQUE: 2 views. FINDINGS: There is mild compression of the L5 superior endplate, age-indeterminate but appears new from 2017. Vertebral body height is otherwise maintained. No subluxation. Mild lower lumbar disk degeneration and facet arthrosis. Right mid abdominal calcification may reflect a nonobstructing renal stone. IMPRESSION: Mild L5 superior endplate compression, age-indeterminate. Mild lower lumbar degenerative changes. RADIA
[2017-12-14 17:25] VITALS: BP 104/89
== END 2017-12-14 17:23 | disposition home or self-care (01) ==
LOC: ED 15:51
DX: S32.050A Wedge compression fracture of fifth lumbar vertebra, initial encounter for closed fracture (principal); X50.0XXA Overexertion from strenuous movement or load, initial encounter; Y99.0 Civilian activity done for income or pay; R03.0 Elevated blood-pressure reading, without diagnosis of hypertension; F17.200 Nicotine dependence, unspecified, uncomplicated
CPT/HCPCS: 1040M; 72100; 99283

== ENCOUNTER 2017-12-31 13:13 | Outpatient (CLI) | payer OTHER ==
--- NOTE | 2018-01-01 08:24 | DEXA Report ---
Procedure Date: 12/31/2017 Accession Number: [id number] / [id number] Procedure: DEX - Dexa Spine and/or Hip CPT Code: FULL RESULT: EXAM: Dexa Spine and/or Hip DATE: 12/31/2017 2:16 PM CLINICAL HISTORY: WEDGE COMPRESSION FRACTURE OF FIFTH LUMBAR VERTEBR TECHNIQUE: Dual energy x-ray absorptiometry (DXA) was performed on a [employer] System. Regions measured are the AP Spine, femoral neck, and if needed forearm. COMPARISON: None. In accordance with the International Society for Clinical Densitometry (ISCD) guidelines, data from previous exams may be reanalyzed using current recommendations and techniques. This is done to allow a more accurate basis for comparison with the current study. FINDINGS: The data for the lumbar spine is as follows: BMD (g/cm/cm) T-SCORE Z-SCORE REGION L1 0.865 -2.5 -1.6 L2 0.963 -2.3 -1.5 L3 0.956 -2.4 -1.5 L4 0.823 -3.5 -2.6 TOTAL 0.899 -2.7 -1.8 NOTE: All evaluable vertebrae are used for classification The data for the hip is as follows: BMD (g/cm/cm) T-SCORE Z-SCORE REGION Neck 0.828 -1.9 -0.8 TOTAL 0.723 -2.6 -1.9 NOTE: The femoral neck or total proximal femur, whichever is lowest, is used for classification. IMPRESSION: THE WHO CLASSIFICATION BASED ON THE INTERNATIONAL REFERENCE STANDARD IS OSTEOPOROSIS. THE FRACTURE RISK IS HIGH. RECOMMENDATION: Patients with diagnosis of osteoporosis or osteopenia should have regular bone mineral density assessment. For those eligible for Medicare, routine testing is allowed once every 2 years. Testing frequency can be increased for patients who have rapidly progressing disease or for those who are receiving medical therapy to restore bone mass. COMMENT: World Health Organization (WHO) definitions for osteoporosis and osteopenia: NORMAL BMD: T-score at -1.0 or higher, fracture risk is low OSTEOPENIA BMD: T-score between -1.0 and -2.5, fracture risk is increased. OSTEOPOROSIS BMD: T-score at -2.5 or lower, fracture risk is high. National Osteoporosis Foundation recommends: 1. Obtain adequate dietary calcium (at least 1200 mg per day) and vitamin D (400-800 international units per day). 2. Participate, as appropriate, in regular weightbearing and muscle-strengthening exercise. 3. Avoid tobacco use and reduce alcohol and caffeine intake. 4. For more detailed information see the website at www.NOF.org.
== END 2017-12-31 13:14 | disposition home or self-care (01) ==
LOC: DI 13:13
PROVIDERS: ATTEND Family Medicine
DX: S32.050D Wedge compression fracture of fifth lumbar vertebra, subsequent encounter for fracture with routine healing (principal); M54.5 Low back pain; M81.0 Age-related osteoporosis without current pathological fracture
CPT/HCPCS: 77080

== ENCOUNTER 2018-11-06 13:42 | Outpatient (CLI) | payer SELFPAY ==
--- NOTE | 2018-11-06 16:03 | XRAY Report ---
Reason: SOB X 6 WEEKS,COUGH,LOW GRAD FEVER Procedure Date: 11/06/2018 Accession Number: [id number] / [id number] Procedure: XR - Chest 2 View X-Ray CPT Code: 36105 FULL RESULT: EXAM: CHEST RADIOGRAPHY EXAM DATE: 11/06/2018 01:45 PM. CLINICAL HISTORY: Shortness of breath x 6 weeks ,cough, low grade fever. COMPARISON: CHEST 1 VIEW 07/19/2017 7:54 PM. TECHNIQUE: 2 views. FINDINGS: Lungs/Pleura: There is a new right upper lung cavity with air-fluid level which measures at least 8.5 cm in maximal dimension. A small amount of consolidation is seen in this region. Otherwise there is no consolidation. There is a trace right pleural effusion. No meaningful left pleural effusion. No pneumothorax. Lung volumes are high with flattened diaphragms suggestive of underlying COPD. Mediastinum: Heart and mediastinal contours are unremarkable. Other: None. IMPRESSION: New upper lobe cavitary lesion with air-fluid level. RADIA The call report notification system was initiated by Dr. Bruno Story at 03:59 PM on 11/06/2018. ADDENDUM: 11/06/18 16:15 The above call report findings were discussed with the Rakel Jessica the medical physics professor sulma [place] by Dr. Bruno Story at 04:15 PM on 11/06/2018.
== END 2018-11-06 13:43 | disposition home or self-care (01) ==
LOC: DI 13:42
PROVIDERS: ATTEND Physician Assistant Medical
DX: R91.1 Solitary pulmonary nodule (principal); R06.02 Shortness of breath; R05 Cough; R50.9 Fever, unspecified
CPT/HCPCS: 71046

== ENCOUNTER 2019-05-07 11:49 | Outpatient (CLI) | payer MEDICAID ==
[2019-05-07 18:49] LABS: BASOPHILS # (AUTO) 0.1 10^3/uL (0.0-0.1); EOSINOPHILS # (AUTO) 0.2 10^3/uL (0.0-0.7); EOSINOPHILS % (AUTO) 1.7 %; HGB - HEMOGLOBIN 14.9 g/dL (14.0-18.0); LYMPHOCYTES # (AUTO) 3.3 10^3/uL (1.5-3.5); LYMPHOCYTES % (AUTO) 30.3 %; MEAN CORPUSCULAR HEMOGLOBIN 32.7 pg (27.0-31.0); MEAN CORPUSCULAR HGB CONC 32.4 g/dL (32.0-36.0); MEAN CORPUSCULAR VOLUME 101.1 fL (80.0-94.0); MEAN PLATELET VOLUME 10.7 fL (7.4-11.4); MONOCYTES # (AUTO) 1.3 10^3/uL (0.0-1.0); MONOCYTES % (AUTO) 11.9 %; NEUTROPHILS # (AUTO) 5.9 10^3/uL (1.5-6.6); NEUTROPHILS % (AUTO) 54.6 %; PLT - PLATELET COUNT 249 10^3/uL (130-450); RED BLOOD COUNT 4.55 10^6/uL (4.70-6.10); RED CELL DISTRIBUTION WIDTH 15.5 % (12.0-15.0); WHITE BLOOD COUNT 10.8 x10^3/uL (4.8-10.8)
[2019-05-07 19:18] LABS: HEMOGLOBIN A1C 0.5 g/dL; HEMOGLOBIN A1C % 5.2 % (4.6-6.2)
[2019-05-07 19:21] LABS: ALBUMIN 4.1 g/dL (3.2-5.5); ALBUMIN/GLOBULIN RATIO 1.1 (1.0-2.2); ALKALINE PHOSPHATASE 84 IU/L (42-121); ALT ALANINE AMINOTRANSFERASE 52 IU/L (10-60); AST ASPARTATE AMINOTRANSFERASE 52 IU/L (10-42); BILIRUBIN,TOTAL 0.5 mg/dL (0.2-1.0); BUN - BLOOD UREA NITROGEN 10 mg/dL (6-20); CALCIUM 9.1 mg/dL (8.5-10.3); CARBON DIOXIDE - CO2 25 mmol/L (21-32); CHLORIDE 103 mmol/L (101-111); CHOL/HDL RATIO 2.1 (<5.0); CHOLESTEROL 210 mg/dL; CREATININE 0.7 mg/dL (0.6-1.2); GFR - MDRD 118 (>89); GLUCOSE 80 mg/dL (70-100); HDL CHOLESTEROL 102 mg/dL; LDL CHOLESTEROL,CALCULATED 85 mg/dL; LDL/HDL RATIO 0.8 (<3.6); SODIUM 142 mmol/L (135-145); VLDL CHOLESTEROL 23 mg/dL
== END 2019-05-07 23:59 | disposition home or self-care (01) ==
LOC: LAB.N 11:49
PROVIDERS: ATTEND Physician Assistant Medical
DX: F10.10 Alcohol abuse, uncomplicated (principal)
CPT/HCPCS: 36415; 80053; 80061; 83036; 83721; 84443; 85025

== ENCOUNTER 2019-05-15 16:05 | Outpatient (CLI) | payer MEDICAID | END 2019-05-15 16:06 | disposition critical access hospital (66) | LOC: EMS 16:05 | PROVIDERS: ATTEND Surgery | DX: R07.81 Pleurodynia (principal); R06.00 Dyspnea, unspecified; R03.1 Nonspecific low blood-pressure reading; R42 Dizziness and giddiness; R53.1 Weakness; W19.XXXA Unspecified fall, initial encounter; Y92.038 Other place in apartment as the place of occurrence of the external cause | CPT/HCPCS: A0425; A0429; A0999 ==

== ENCOUNTER 2019-05-15 16:25 | Emergency (ER) | payer MEDICAID ==
[2019-05-15] MEDS ORDERED: SODIUM CHLORIDE 0.9% 1,000 ML IV STA (16:41)
[2019-05-15] MEDS ORDERED: HYDROmorphone 1 MG/ML CARPUJECT IVP STA ×4 (16:41→20:07)
[2019-05-15] MEDS ORDERED: IOVERSOL 320 100 ML VIAL IVP ONE ×2 (16:50→17:40)
--- NOTE | 2019-05-15 16:51 | ED Physician Documentation ---
History of Present Illness - Stated complaint Stated Complaint: FALL - Chief complaint Chief Complaint: Trauma Abd - History obtained from History obtained from: Patient, EMS - History of Present Illness Timing: Today Pain level max: 8 Pain level now: 8 - Additonal information Additional information: 54-year-old male states that he tripped and fell landing on a glass coffee table injuring his left ribs. He states that he took himself to bed but the pain is worsened. Worse with movement and palpation. Nothing makes it better. He states he did hit his head, does not recall the event clearly. No abdominal pain. No neck or back pain. Review of Systems Ten Systems: 10 systems reviewed and negative Constitutional: denies: Fever, Chills Nose: denies: Rhinorrhea / runny nose, Congestion Cardiac: denies: Chest pain / pressure Respiratory: denies: Cough GI: denies: Vomiting, Diarrhea Skin: denies: Rash Musculoskeletal: denies: Neck pain, Back pain Neurologic: denies: Focal weakness, Numbness, Headache PD PAST MEDICAL HISTORY - Past Medical History Cardiovascular: None Respiratory: None Endocrine/Autoimmune: None GI: None : None HEENT: None Psych: Depression, Anxiety, Other Musculoskeletal: None Derm: None - Past Surgical History Past Surgical History: No - Present Medications Home Medications: Ambulatory Orders Medication Instructions Recorded Confirmed QUEtiapine [SEROquel] 50 mg PO DAILY 08/06/16 07/20/17 diltiaZEM [Cardizem] 60 mg PO ONCE PRN #30 tablet 07/20/17 Dextroamphetamine/Amphetamine 40 mg PO DAILY 08/20/17 08/20/17 [Adderall 10 mg Tablet] Oxycodone HCl/Acetaminophen 1 - 2 each PO Q6H PRN #7 tablet 08/20/17 [Percocet 5-325 mg Tablet] HYDROcod/ACETAM 5/325 [Glidden 5/325] 1 - 2 ea PO Q6H PRN #15 tablet 12/14/17 Ibuprofen [Motrin] 800 mg PO Q8H PRN #30 tablet 12/14/17 - Allergies Allergies/Adverse Reactions: Allergies Allergy/AdvReac Type Severity Reaction Status Date / Time cephalexin [From Keflex] AdvReac Nausea Verified 05/15/19 16:33 - Social History Does the pt smoke?: Yes Smoking Status: Current every day smoker Does the pt drink ETOH?: Yes Does the pt have substance abuse?: No - Immunizations Immunizations are current?: Yes - POLST Patient has POLST: No PD ED PE NORMAL - Vitals Vital signs reviewed: Yes - General General: Alert and oriented X 3, Other (Appears in pain) - HEENT HEENT: Atraumatic, PERRL, Moist mucous membranes, Pharynx benign - Neck Neck: Supple, no meningeal sign, No bony TTP - Cardiac Cardiac: RRR, Strong equal pulses - Respiratory Respiratory: No respiratory distress, Other (Tender to palpation on the left chest. 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, No motor deficit, No sensory deficit, Normal speech - Psych Psych: Normal mood, Normal affect Results - Vitals Vitals: Vital Signs - 24 hr 05/15/19 05/15/19 05/15/19 16:28 17:40 17:50 Temperature 37.1 C Heart Rate 130 H 115 H 112 H Respiratory 20 20 15 Rate Blood Pressure 133/107 H 117/92 H 106/96 H O2 Saturation 99 99 95 05/15/19 05/15/19 05/15/19 17:55 18:19 19:18 Temperature Heart Rate 112 H 124 H 111 H Respiratory 18 22 20 Rate Blood Pressure 117/98 H 111/99 H 104/94 H O2 Saturation 97 100 97 05/15/19 20:00 Temperature Heart Rate 105 H Respiratory 22 Rate Blood Pressure 101/57 L O2 Saturation 97 Oxygen O2 Source Room air - EKG (time done) 1634 Rate: Rate (enter#) (125) Rhythm: Sinus tachycardia [place]: Normal Intervals: Normal MN QRS: Normal Ischemia: Normal ST segments - Labs Labs: Laboratory Tests 05/15/19 05/15/19 05/15/19 17:08 17:08 19:22 WBC 13.8 H RBC 4.77 Hgb 15.7 Hct 47.4 MCV 99.4 H MCH 32.9 H MCHC 33.1 RDW 13.8 Plt Count 172 MPV 10.6 Neut # (Auto) 11.5 H Lymph # (Auto) 1.2 L Rabun # (Auto) 0.8 Eos # (Auto) 0.1 Baso # (Auto) 0.1 Absolute Nucleated RBC 0.00 Nucleated RBC % 0.0 Sodium 134 L Potassium 3.2 L Chloride 97 L Carbon Dioxide 25 Anion Gap 12.0 BUN 17 Creatinine 0.7 Estimated GFR (MDRD) 118 Glucose 115 H Calcium 9.0 Total Bilirubin 1.0 AST 72 H ALT 72 H Alkaline Phosphatase 81 Total Protein 7.5 Albumin 3.8 Globulin 3.7 Albumin/Globulin Ratio 1.0 Lipase 30 Ethyl Alcohol < 5.0 Blood Type O POSITIVE Antibody Screen NEGATIVE - Rads (name of study) Head CT Radiology: Prelim report reviewed, EMP read contemporaneously, See rad report (No acute traumatic intracranial abnormality. ) Cervical spine CT Radiology: Prelim report reviewed, EMP read contemporaneously, See rad report (IMPRESSION: 1. No acute cervical spine fracture or listhesis. 2. Degenerative changes, as above. 3. Partially visualized left-sided pneumothorax with extensive subcutaneous emphysema extending up the left neck. ) chest CT Radiology: Prelim report reviewed, EMP read contemporaneously, See rad report (1. Displaced left lateral seventh and eighth rib fractures with mild basilar pneumothorax and with chest wall defect communicating with large amount of left chest wall emphysema. 2. New cavitary abnormality of the right upper lobe concerning for neoplasm. 3. 2 column burst fracture at T8 with mild retropulsion, chronic in appearance) abd/pelvis CT Radiology: Prelim report reviewed, EMP read contemporaneously, See rad report (1. Contained grade II posterior splenic laceration without evidence of active extravasation. 2. Hepatic steatosis noted. 3. Large calcified gallstone. 4. High-grade proximal SMA stenosis noted. 5. Chronic superior endplate L5 compression fracture. 6. Bladder wall thickening noted. 7. Left lateral abdominal wall emphysema. See chest CT report. ) Procedures - Chest Tube (location) left other other Chest tube preparation: Consent obtained (verbal), Time out completed, Sterile prep and drape Chest tube location: Left, Intercostal space - enter (3), Other (mid clavicular) Chest tube size: 8 Chest tube return: Air Chest tube after care: Confirmed with xray, Pt tolerated well, Other (thoravent) PD MEDICAL DECISION MAKING - ED course Complexity details: reviewed results, re-evaluated patient, considered differential, d/w patient, d/w search consultant ED course: 54-year-old male status post a fall earlier today. Has multiple left-sided rib fractures, grade 2 splenic laceration. Also has a pneumothorax. Pigtail catheter was placed. Tolerated well. He also has a cavitary spiculated lesion in his right upper lobe, concerning for malignancy. Also has high-grade proximal SMA stenosis noted. Has chronic appearing spinal fractures. Patient would benefit from a trauma center. Therefore I contacted [facility] at 1830 for transfer. Patient graciously accepted by Dr. Bahena, trauma surgery at [facility] at 1907. COBRA forms completed. This document was made in part using voice recognition software. While efforts are made to proofread this document, sound alike and grammatical errors may occur. Departure - Departure Disposition: 02 Transfer Acute Care Hosp Clinical Impression: Pneumothorax on left Ribs, multiple fractures Qualifiers: Encounter type: initial encounter Fracture type: closed Laterality: left Qualified Code(s): S22.42XA - Multiple fractures of ribs, left side, initial encounter for closed fracture Splenic laceration Qualifiers: Encounter type: initial encounter Qualified Code(s): S36.039A - Unspecified laceration of spleen, initial encounter Compression fracture of T6 vertebra Qualifiers: Encounter type: initial encounter Qualified Code(s): S22.050A - Wedge compression fracture of T5-T6 vertebra, initial encounter for closed fracture Condition: Stable
[2019-05-15 17:13] LABS: BASOPHILS # (AUTO) 0.1 10^3/uL (0.0-0.1); BASOPHILS % (AUTO) 0.5 %; EOSINOPHILS # (AUTO) 0.1 10^3/uL (0.0-0.7); EOSINOPHILS % (AUTO) 0.4 %; HGB - HEMOGLOBIN 15.7 g/dL (14.0-18.0); LYMPHOCYTES # (AUTO) 1.2 10^3/uL (1.5-3.5); LYMPHOCYTES % (AUTO) 8.6 %; MEAN CORPUSCULAR HEMOGLOBIN 32.9 pg (27.0-31.0); MEAN CORPUSCULAR HGB CONC 33.1 g/dL (32.0-36.0); MEAN CORPUSCULAR VOLUME 99.4 fL (80.0-94.0); MEAN PLATELET VOLUME 10.6 fL (7.4-11.4); MONOCYTES # (AUTO) 0.8 10^3/uL (0.0-1.0); MONOCYTES % (AUTO) 6.1 %; NEUTROPHILS # (AUTO) 11.5 10^3/uL (1.5-6.6); PLT - PLATELET COUNT 172 10^3/uL (130-450); RED BLOOD COUNT 4.77 10^6/uL (4.70-6.10); RED CELL DISTRIBUTION WIDTH 13.8 % (12.0-15.0); WHITE BLOOD COUNT 13.8 x10^3/uL (4.8-10.8)
--- NOTE | 2019-05-15 17:54 | CT Report ---
Reason: Head trauma, mod-severe Procedure Date: 05/15/2019 Accession Number: [id number] / [id number] Procedure: CT - HEAD WO CPT Code: Final Report FULL RESULT: EXAM: CT HEAD EXAM DATE: 05/15/2019 05:18 PM. CLINICAL HISTORY: Head trauma, mod-severe. COMPARISON: HEAD W/O 08/07/2016 12:16 AM. TECHNIQUE: Multiaxial CT images were obtained from the foramen magnum to the vertex. Reformats: Sagittal and coronal. IV contrast: None. In accordance with CT protocol optimization, one or more of the following dose reduction techniques were utilized for this exam: automated exposure control, adjustment of mA and/or KV based on patient size, or use of iterative reconstructive technique. FINDINGS: Parenchyma: Small focus of encephalomalacia in the right caudate nucleus measuring 6 mm, unchanged since prior. No intraparenchymal hemorrhage. No evidence of mass, midline shift, or CT findings of infarction. [place]-white differentiation is distinct. Extraaxial Spaces: Normal for age. No subdural or epidural collections identified. Ventricles: Normal in size and position. Sinuses and Orbits: Imaged paranasal sinuses, orbits, and mastoids show no significant abnormality. Bones: No evidence of fracture or calvarial defect. Other: None. IMPRESSION: No acute traumatic intracranial abnormality. RADIA
--- NOTE | 2019-05-15 18:06 | CT Report ---
Reason: Neck trauma, midline tenderness Procedure Date: 05/15/2019 Accession Number: [id number] / [id number] Procedure: CT - CERVICAL SPINE WO CPT Code: Final Report FULL RESULT: EXAM: CT CERVICAL SPINE WITHOUT CONTRAST DATE: 05/15/2019 05:18 PM. HISTORY: Neck trauma, midline tenderness. COMPARISONS: CERVICAL SPINE W/O 08/07/2016 12:18 AM. TECHNIQUE: Thin-section axial images were acquired of the cervical spine without contrast. Post-processing: Coronal and sagittal reformats. Other: None. In accordance with CT protocol optimization, one or more of the following dose reduction techniques were utilized for this exam: automated exposure control, adjustment of mA and/or KV based on patient size, or use of iterative reconstructive technique. FINDINGS: Alignment: No scoliosis or spondylolisthesis. Bones: No fracture or bone lesion. Interspace Levels/Facets: C1-C2: Unremarkable. C2-C3: Unremarkable. C3-C4: Unremarkable. C4-C5: Unremarkable. C5-C6: Moderate left neural foraminal narrowing. C6-C7: Moderate left neural foraminal narrowing. C7-T1: Unremarkable. Musculature: Normal. No fatty atrophy. Other: Extensive subcutaneous emphysema tracking along the posterior upper left back and left posterior neck. Partially visualized left-sided pneumothorax. Scarring in the right apex also demonstrated. IMPRESSION: 1. No acute cervical spine fracture or listhesis. 2. Degenerative changes, as above. 3. Partially visualized left-sided pneumothorax with extensive subcutaneous emphysema extending up the left neck. RADIA The critical result notification system was initiated by Dr. Sada Dumas at 05:57 PM on 05/15/2019. The above critical result findings were discussed with Nurse Manrique by Dr. Sada Dumas at 06:04 PM on 05/15/2019.
--- NOTE | 2019-05-15 18:18 | CT Report ---
Reason: Chest trauma, blunt, low energy Procedure Date: 05/15/2019 Accession Number: [id number] / [id number] Procedure: CT - CHEST W CPT Code: Final Report FULL RESULT: EXAM: CT CHEST EXAM DATE: 05/15/2019 05:33 PM. CLINICAL HISTORY: Found down. Chest trauma, blunt, low energy. Left-sided pain. COMPARISONS: ABDOMEN/PELVIS W/ 08/07/2016 12:23 AM CHEST 2 VIEW 11/06/2018 1:45 PM. TECHNIQUE: Routine helical CT imaging was performed through the chest. IV contrast: 100 cc of Optiray 320. Reconstructions: Coronal and sagittal. In accordance with CT protocol optimization, one or more of the following dose reduction techniques were utilized for this exam: automated exposure control, adjustment of mA and/or KV based on patient size, or use of iterative reconstructive technique. FINDINGS: Lungs/Pleura: Irregular cavitary abnormality up to 2.5 cm size in the central right upper lobe with lateral spiculated wall thickening. On the left, mild basilar pneumothorax tiny effusion. No nodules, bronchial thickening, consolidation, or edema. Pulmonary vasculature is normal. No pericardial or pleural effusion. No pneumothorax. Mediastinum: Normal. No adenopathy or masses. The heart and great vessels are normal. Bones: Displaced lateral left seventh and eighth fractures. Associated chest wall defect noted with communication between the pneumothorax and the chest wall emphysema. 2 column burst fracture with mild retropulsion at T8, chronic in appearance although nuisance prior exam of October, with roughly 50% loss of height anteriorly, 20% loss of height posteriorly. IMPRESSION: 1. Displaced left lateral seventh and eighth rib fractures with mild basilar pneumothorax and with chest wall defect communicating with large amount of left chest wall emphysema. 2. New cavitary abnormality of the right upper lobe concerning for neoplasm. 3. 2 column burst fracture at T8 with mild retropulsion, chronic in appearance. RADIA The critical result notification system was initiated by Dr. Ravindra Gunter at 06:09 PM on 05/15/2019. The above critical result findings were discussed with Saji Reese by Dr. Ravindra Gunter at 06:15 PM on 05/15/2019.
--- NOTE | 2019-05-15 18:25 | CT Report ---
Reason: Abdominal trauma, blunt Procedure Date: 05/15/2019 Accession Number: [id number] / [id number] Procedure: CT - Abdomen/Pelvis W CPT Code: Final Report FULL RESULT: EXAM: CT ABDOMEN AND PELVIS EXAM DATE: 05/15/2019 05:33 PM. CLINICAL HISTORY: Found down. Abdominal trauma, blunt. Left-sided pain. COMPARISONS: ABDOMEN/PELVIS W/ 08/07/2016 12:23 AM. TECHNIQUE: Routine helical CT imaging was performed through the abdomen and pelvis. IV contrast: 100 cc of Optiray 320. Enteric contrast: No. Reconstructions: Coronal and sagittal. In accordance with CT protocol optimization, one or more of the following dose reduction techniques were utilized for this exam: automated exposure control, adjustment of mA and/or KV based on patient size, or use of iterative reconstructive technique. FINDINGS: Liver: Diffuse low density. Gallbladder/Bile Ducts: Large calcified gallstone. No dilated ducts. Spleen: Contained posterior grade II laceration without evidence of active extravasation or perisplenic hematoma. Pancreas: Normal. Adrenal Glands: Normal. Kidneys: Normal. No masses or hydronephrosis. Peritoneal Cavity/Bowel: Normal. No free fluid, free air or adenopathy. No masses or acute inflammatory process. The appendix is well visualized and normal. Pelvic Organs: Unremarkable prostate. Thick-walled bladder. Vasculature: No aneurysm. Mild atherosclerotic calcification. High-grade proximal SMA stenosis noted. Bones: Mild chronic superior endplate compression fracture at L5. No acute fractures of the abdomen and pelvis. See chest CT report. Other: Left lateral abdominal wall emphysema. IMPRESSION: 1. Contained grade II posterior splenic laceration without evidence of active extravasation. 2. Hepatic steatosis noted. 3. Large calcified gallstone. 4. High-grade proximal SMA stenosis noted. 5. Chronic superior endplate L5 compression fracture. 6. Bladder wall thickening noted. 7. Left lateral abdominal wall emphysema. See chest CT report. RADIA The critical result notification system was initiated by Dr. Ravindra Gunter at 06:09 PM on 05/15/2019. The above critical result findings were discussed with aSji Reese by Dr. Ravindra Gunter at 06:15 PM on 05/15/2019.
[2019-05-15] MEDS ORDERED: SODIUM CHLORIDE 0.9% 1,000 ML IV ONE (18:59)
[2019-05-15 19:53] LABS: ALBUMIN 3.8 g/dL (3.2-5.5); ALKALINE PHOSPHATASE 81 IU/L (42-121); ALT ALANINE AMINOTRANSFERASE 72 IU/L (10-60); AST ASPARTATE AMINOTRANSFERASE 72 IU/L (10-42); BUN - BLOOD UREA NITROGEN 17 mg/dL (6-20); CARBON DIOXIDE - CO2 25 mmol/L (21-32); CHLORIDE 97 mmol/L (101-111); CREATININE 0.7 mg/dL (0.6-1.2); GFR - MDRD 118 (>89); GLUCOSE 115 mg/dL (70-100); LIPASE 30 U/L (22-51); SODIUM 134 mmol/L (135-145); TOTAL PROTEIN 7.5 g/dL (6.7-8.2)
[2019-05-15 20:07] VITALS: BP 115/94
--- NOTE | 2019-05-15 22:30 | XRAY Report ---
Reason: s/p chest tube Procedure Date: 05/15/2019 Accession Number: [id number] / [id number] Procedure: XR - Chest for Line Placement CPT Code: Final Report FULL RESULT: EXAM: CHEST RADIOGRAPHY EXAM DATE: 05/15/2019 06:25 PM. CLINICAL HISTORY: S/p chest tube. COMPARISON: CHEST 2 VIEW 11/06/2018 1:45 PM CHEST W/ 05/15/2019 5:23 PM. TECHNIQUE: 1 view. FINDINGS: Lungs/Pleura: Cavitary lesion in the right upper lobe is better seen on recent CT. A small bore left chest tube is present, with the tip near the apex. No pneumothorax is evident. No effusions. Some atelectatic changes are present in the left base. Mediastinum: Within exam limitations, the cardiomediastinal contour is normal. Other: Extensive left chest wall gas. IMPRESSION: Small bore left apical chest tube. No pneumothorax. RADIA
== END 2019-05-15 20:46 | disposition short-term general hospital (02) ==
LOC: EDUNIT# → EDBD → ED 16:25
DX: S27.0XXA Traumatic pneumothorax, initial encounter (principal); S22.42XA Multiple fractures of ribs, left side, initial encounter for closed fracture; S22.050A Wedge compression fracture of T5-T6 vertebra, initial encounter for closed fracture; S36.039A Unspecified laceration of spleen, initial encounter; T79.7XXA Traumatic subcutaneous emphysema, initial encounter; R91.8 Other nonspecific abnormal finding of lung field; M48.00 Spinal stenosis, site unspecified; W01.190A Fall on same level from slipping, tripping and stumbling with subsequent striking against furniture, initial encounter; F17.200 Nicotine dependence, unspecified, uncomplicated
CPT/HCPCS: 32551; 36415; 70450; 71260; 72125; 74177; 80053; 80320; 83690; 85025; 86850; 86900; 86901; 93005; 96374; 96376; 99285; J1170; Q9967; 71045; 85610; 85730

== ENCOUNTER 2019-05-15 21:00 | Outpatient (CLI) | payer MEDICAID | END 2019-05-15 21:01 | disposition short-term general hospital (02) | LOC: EMS 21:00 | PROVIDERS: ATTEND Surgery | DX: S27.0XXA Traumatic pneumothorax, initial encounter (principal); S22.42XA Multiple fractures of ribs, left side, initial encounter for closed fracture; S36.039A Unspecified laceration of spleen, initial encounter; W18.39XA Other fall on same level, initial encounter | CPT/HCPCS: A0425; A0426 ==

== ENCOUNTER 2019-06-01 12:59 | Outpatient (CLI) | payer MEDICAID | END 2019-06-01 13:00 | disposition critical access hospital (66) | LOC: EMS 12:59 | PROVIDERS: ATTEND Surgery | DX: R52 Pain, unspecified (principal) | CPT/HCPCS: A0425; A0429; A0999 ==

== ENCOUNTER 2019-06-01 13:19 | Emergency (ER) | payer MEDICAID ==
[2019-06-01] MEDS ORDERED: HYDROmorphone 2 MG TABLET PO STA (14:51)
--- NOTE | 2019-06-01 14:53 | ED Physician Documentation ---
History of Present Illness - Stated complaint Stated Complaint: HBD - Chief complaint Chief Complaint: General - History obtained from History obtained from: Patient - History of Present Illness Timing: How many weeks ago (2) Pain level max: 8 Pain level now: 8 - Additonal information Additional information: 54-year-old male recently sent to [facility] in [place] for rib fractures, pneumothorax and lung mass. He states that he ran out of his pain medication and sees his doctor again tomorrow. Requesting a small amount to get him through until tomorrow. Worse with movement and better with rest. No vomiting. No headache. No neck or back pain. Review of Systems Constitutional: denies: Fever, Chills Throat: denies: Sore throat Cardiac: denies: Chest pain / pressure, Palpitations Respiratory: denies: Cough GI: denies: Vomiting, Diarrhea Skin: denies: Rash Musculoskeletal: denies: Neck pain, Back pain Neurologic: denies: Headache PD PAST MEDICAL HISTORY - Past Medical History Past Medical History: Yes Cardiovascular: None Respiratory: None Endocrine/Autoimmune: None GI: None : None HEENT: None Psych: Depression, Anxiety, Other Musculoskeletal: None Derm: None Other Past Medical History: lung mass - Past Surgical History Past Surgical History: No - Present Medications Home Medications: Ambulatory Orders Medication Instructions Recorded Confirmed QUEtiapine [SEROquel] 50 mg PO DAILY 08/06/16 06/01/19 diltiaZEM [Cardizem] 60 mg PO ONCE PRN #30 tablet 07/20/17 06/01/19 Ibuprofen [Motrin] 800 mg PO Q8H PRN #30 tablet 12/14/17 06/01/19 Acetaminophen 1,000 mg PO TID PRN 06/01/19 06/01/19 Docusate Sodium 100 mg PO BID 06/01/19 06/01/19 Gabapentin 300 mg PO TID 06/01/19 06/01/19 HYDROmorphone [Dilaudid] 2 mg PO Q4-6H 06/01/19 06/01/19 HYDROmorphone [Dilaudid] 2 mg PO Q4-6H PRN #5 tablet 06/01/19 Omeprazole 20 mg PO PRN PRN 06/01/19 06/01/19 - Allergies Allergies/Adverse Reactions: Allergies Allergy/AdvReac Type Severity Reaction Status Date / Time cephalexin [From Keflex] AdvReac Nausea Verified 06/01/19 13:25 - Social History Does the pt smoke?: Yes Smoking Status: Current every day smoker Does the pt drink ETOH?: Yes Does the pt have substance abuse?: No - Immunizations Immunizations are current?: Yes - POLST Patient has POLST: No PD ED PE NORMAL - Vitals Vital signs reviewed: Yes - General General: Alert and oriented X 3, No acute distress, Well developed/nourished - HEENT HEENT: PERRL, Moist mucous membranes - Neck Neck: Supple, no meningeal sign - Cardiac Cardiac: RRR, Strong equal pulses - Respiratory Respiratory: No respiratory distress, Clear bilaterally - Abdomen Abdomen: Soft, Non tender, Non distended - Derm Derm: Warm and dry - Extremities Extremities: No edema - Neuro Neuro: Alert and oriented X 3 - Psych Psych: Normal mood, Normal affect Results - Vitals Vitals: Vital Signs - 24 hr 06/01/19 06/01/19 13:22 13:48 Temperature 36.8 C Heart Rate 117 H 90 Respiratory 14 16 Rate Blood Pressure 132/111 H 134/104 H O2 Saturation 98 98 Oxygen O2 Source Room air PD MEDICAL DECISION MAKING - ED course Complexity details: reviewed old records, considered differential, d/w patient ED course: We will refill a small amount of pain medication for him to get him through until tomorrow. He was informed that he will no longer receive narcotics for this from the emergency department. Patient also informed that he is not to drink any alcohol while taking narcotics. Patient counseled regarding signs and symptoms for which I believe and urgent re-evaluation would be necessary. Patient with good understanding of and agreement to plan and is comfortable going home at this time This document was made in part using voice recognition software. While efforts are made to proofread this document, sound alike and grammatical errors may occur. Departure - Departure Disposition: 01 Home, Self Care Clinical Impression: Ribs, multiple fractures Qualifiers: Encounter type: initial encounter Fracture type: closed Laterality: left Qualified Code(s): S22.42XA - Multiple fractures of ribs, left side, initial encounter for closed fracture Condition: Good Instructions: ED Fx Rib Follow-Up: Pipe Hernandez PA-C [Primary Care Provider] - Within 3 Days Prescriptions: HYDROmorphone [Dilaudid] 2 mg PO Q4-6H PRN #5 tablet PRN Reason: pain Comments: Return if you worsen. Do not drink alcohol while taking the hydromorphone. You should need to follow-up with your doctor tomorrow for a refill of your medication. Do not drink alcohol or drive while on narcotic pain medicine. Note that many narcotic pain relievers also contain tylenol/acetaminophen. Please ensure that your total dose of acetaminophen from all sources does not exceed 3 grams (3000mg) per day. You may constipated on this medication, take a stool softener such as "Colace" twice a day while you are on it. Also recommend a [id number]-bfdirkr laxative such as senna or MiraLAX any day that you do not have a bowel movement. If you received narcotic pain medication in the emergency department, do not drive or operate machinery for the next 24 hours.
[2019-06-01 14:54] VITALS: BP 118/92
== END 2019-06-01 15:02 | disposition home or self-care (01) ==
LOC: EDUNIT# → ED 13:19
DX: S22.42XA Multiple fractures of ribs, left side, initial encounter for closed fracture (principal); X58.XXXA Exposure to other specified factors, initial encounter; R91.8 Other nonspecific abnormal finding of lung field; F17.200 Nicotine dependence, unspecified, uncomplicated
CPT/HCPCS: 99283; 99284; A9270

== ENCOUNTER 2020-05-28 00:46 | Emergency (ER) | payer MEDICAID ==
[2020-05-28] MEDS ORDERED: SODIUM CHLORIDE 0.9% 1,000 ML IV STA (01:09)
[2020-05-28] MEDS ORDERED: ONDANSETRON 4 MG/2 ML VIAL IVP STA (01:09)
[2020-05-28] MEDS ORDERED: FOLIC ACID INJ 1 MG, THIAMINE INJ 100 MG, MAGNESIUM SULFATE 2 GM, MULTIVITAMIN 10 ML in... IV STA ×5 (01:10)
[2020-05-28] MEDS ORDERED: FAMOTIDINE 20 MG/2 ML VIAL IVP STA (01:10)
[2020-05-28] MEDS ORDERED: LORazepam 2 MG/ML VIAL IVP STA ×3 (01:10→02:09)
[2020-05-28 01:19] LABS: BASOPHILS # (AUTO) 0.1 10^3/uL (0.0-0.1); BASOPHILS % (AUTO) 0.6 %; EOSINOPHILS % (AUTO) 0.1 %; HGB - HEMOGLOBIN 15.7 g/dL (14.0-18.0); LYMPHOCYTES # (AUTO) 1.4 10^3/uL (1.5-3.5); LYMPHOCYTES % (AUTO) 14.8 %; MEAN CORPUSCULAR HEMOGLOBIN 33.5 pg (27.0-31.0); MEAN CORPUSCULAR HGB CONC 34.3 g/dL (32.0-36.0); MEAN CORPUSCULAR VOLUME 97.9 fL (80.0-94.0); MEAN PLATELET VOLUME 10.4 fL (7.4-11.4); MONOCYTES # (AUTO) 1.5 10^3/uL (0.0-1.0); MONOCYTES % (AUTO) 16.4 %; NEUTROPHILS # (AUTO) 6.4 10^3/uL (1.5-6.6); NEUTROPHILS % (AUTO) 67.7 %; PLT - PLATELET COUNT 261 10^3/uL (130-450); RED BLOOD COUNT 4.68 10^6/uL (4.70-6.10); RED CELL DISTRIBUTION WIDTH 12.4 % (12.0-15.0); WHITE BLOOD COUNT 9.4 x10^3/uL (4.8-10.8)
--- NOTE | 2020-05-28 01:26 | ED Physician Documentation ---
History of Present Illness - Stated complaint Stated Complaint: NAUSEA/VOMITING - Chief complaint Chief Complaint: General - History obtained from History obtained from: Patient - Additonal information Additional information: 55yM with pmh etoh abuse +smoker, otherwise no medical history (doesn't see doctors regularly), p/w alcohol withdrawal. last etoh 2 days ago and since then he has been nauseous, unable to keep food down. also with generalized body tremors. daily etoh drinker X 2 months. he was last admitted here for detox in september. denies seizures, cp, sob fever back pain abd pain urinary sx or rash. Review of Systems Ten Systems: 10 systems reviewed and negative Constitutional: denies: Fever, Chills GI: reports: Nausea, Vomiting Neurologic: reports: Generalized weakness PD PAST MEDICAL HISTORY - Past Medical History Past Medical History: Yes Cardiovascular: None Respiratory: Other Neuro: None Endocrine/Autoimmune: None GI: Other : None HEENT: None Psych: Depression, Anxiety, Other Musculoskeletal: None Derm: None Other Past Medical History: ALCOHOLISM... - Past Surgical History Past Surgical History: Yes General: Other Ortho: Other - Present Medications Home Medications: Ambulatory Orders Medication Instructions Recorded Confirmed QUEtiapine [SEROquel] 50 - 100 mg PO QPM PRN 08/06/16 05/28/20 Lorazepam [Ativan] 2 mg PO 1-2XD 6 Days #5 tablet 05/28/20 - Allergies Allergies/Adverse Reactions: Allergies Allergy/AdvReac Type Severity Reaction Status Date / Time cephalexin [From Keflex] AdvReac Nausea Verified 05/28/20 00:58 - Social History Does the pt smoke?: Yes Smoking Status: Current every day smoker Does the pt drink ETOH?: Yes Does the pt have substance abuse?: No - Immunizations Immunizations are current?: Yes - POLST Patient has POLST: No POLST Status: Full Code PD ED PE NORMAL - Vitals Vital signs reviewed: Yes - General General: Alert and oriented X 3, No acute distress (thin appearing), Other - HEENT HEENT: Atraumatic, PERRL, EOMI, Other (dry mm) - Neck Neck: Supple, no meningeal sign - Cardiac Cardiac: Other (tachycardic rate, regular rhythm) - Respiratory Respiratory: No respiratory distress, Clear bilaterally - Abdomen Abdomen: Non tender, Non distended - Male Male : Deferred - Rectal Rectal: Deferred - Back Back: No spinal TTP - Derm Derm: Normal color - Extremities Extremities: No deformity, No edema - Neuro Neuro: Alert and oriented X 3 - Psych Psych: Normal mood, Normal affect Results - Vitals Vitals: Vital Signs - 24 hr 05/28/20 05/28/20 05/28/20 00:54 01:14 01:40 Temperature 36.0 C L Heart Rate 120 H 101 H 93 Respiratory 19 17 17 Rate Blood Pressure 148/127 H 138/108 H O2 Saturation 99 96 99 05/28/20 05/28/20 05/28/20 02:14 02:44 03:01 Temperature Heart Rate 101 H 95 Respiratory 17 17 19 Rate Blood Pressure 132/98 H O2 Saturation 99 98 05/28/20 05/28/20 05/28/20 03:20 03:38 04:22 Temperature Heart Rate 92 83 Respiratory 17 17 18 Rate Blood Pressure 142/99 H 113/87 H O2 Saturation 97 05/28/20 05/28/20 04:28 05:06 Temperature Heart Rate 90 Respiratory 17 17 Rate Blood Pressure 127/94 H O2 Saturation 100 Oxygen O2 Source Room air - EKG (time done) 0124 Rate: Rate (enter#) (101) Rhythm: Sinus tachycardia Byers: Normal Intervals: Normal NH QRS: Normal Ischemia: Normal ST segments - Labs Labs: Laboratory Tests 05/28/20 05/28/20 01:00 01:00 WBC 9.4 RBC 4.68 L Hgb 15.7 Hct 45.8 MCV 97.9 H MCH 33.5 H MCHC 34.3 RDW 12.4 Plt Count 261 MPV 10.4 Neut # (Auto) 6.4 Lymph # (Auto) 1.4 L [place] # (Auto) 1.5 H Eos # (Auto) 0.0 Baso # (Auto) 0.1 Absolute Nucleated RBC 0.00 Nucleated RBC % 0.0 Sodium 139 Potassium 3.4 L Chloride 91 L Carbon Dioxide 25 Anion Gap 23.0 H BUN 18 Creatinine 0.9 Estimated GFR (MDRD) 88 L Glucose 185 H Calcium 9.6 Total Bilirubin 1.2 H AST 65 H ALT 66 H Alkaline Phosphatase 92 Total Protein 7.6 Albumin 4.2 Globulin 3.4 Albumin/Globulin Ratio 1.2 Lipase 18 L Ethyl Alcohol < 5.0 PD MEDICAL DECISION MAKING - ED course Complexity details: d/w patient ED course: 55yM presents for etoh w/d. will treat symptomatically with 1mg ativan, dose ativan as needed per CIWA. 1:45am - patient with improvement in symptoms. CIWA 8. will give another 1mg dose ativan. likely will be able to go home with ativan taper. 5:20 am - symptoms now completely resolved. vital signs normalized. will dc with ativan taper and outpatient detox follow up. Departure - Departure Disposition: 01 Home, Self Care Clinical Impression: Alcohol withdrawal, Nausea and vomiting Condition: Good Instructions: ED Withdrawal Alcohol Prescriptions: Lorazepam [Ativan] 2 mg PO 1-2XD 6 Days #5 tablet Comments: You have been seen in the emergency department for alcohol withdrawal. Take your medication as prescribed. Follow-up with detox clinic. Return to the ED for any new or worsening symptoms. Return for any other concerns. Follow up with: [facility] [address] [place] [address] Hours: Open 24 hours
[2020-05-28 01:32] LABS: ALBUMIN 4.2 g/dL (3.2-5.5); ALBUMIN/GLOBULIN RATIO 1.2 (1.0-2.2); ALKALINE PHOSPHATASE 92 IU/L (42-121); ALT ALANINE AMINOTRANSFERASE 66 IU/L (10-60); AST ASPARTATE AMINOTRANSFERASE 65 IU/L (10-42); BILIRUBIN,TOTAL 1.2 mg/dL (0.2-1.0); BUN - BLOOD UREA NITROGEN 18 mg/dL (6-20); CALCIUM 9.6 mg/dL (8.5-10.3); CARBON DIOXIDE - CO2 25 mmol/L (21-32); CHLORIDE 91 mmol/L (101-111); CREATININE 0.9 mg/dL (0.6-1.2); GLUCOSE 185 mg/dL (70-100); LIPASE 18 U/L (22-51); SODIUM 139 mmol/L (135-145); TOTAL PROTEIN 7.6 g/dL (6.7-8.2)
[2020-05-28] MEDS ORDERED: MAGNESIUM SULFATE 1 GM/2 ML VIAL ONE (01:38)
[2020-05-28] MEDS ORDERED: FOLIC ACID 5 MG/1 ML 10ML MDV ONE (01:38)
[2020-05-28] MEDS ORDERED: THIAMINE 100 MG/1 ML 2 ML MDV ONE (01:38)
[2020-05-28] MEDS ORDERED: POTASSIUM CHLORIDE 20 MEQ/15 ML UDC PO STA (02:04)
[2020-05-28] MEDS ORDERED: chlordiazePOXIDE 25 MG CAPSULE PO STA (03:09)
[2020-05-28] MEDS ORDERED: LIDOCAINE VISCOUS 2% 15 ML UDC MM STA (04:39)
[2020-05-28 05:26] VITALS: BP 118/89
--- OUTSIDE RECORDS SUMMARY | 2020-06-01 01:49 | EXTERNAL MEDICAL SUMMARY RPT | Continuity of Care Document ---
:1965 Demographics Phone Unavailable Preferred Language Bruneian Marital Status Unknown Advent Affiliation Unknown Race Unknown Ethnic Group Unknown Author Organization [place] Address [address] [phone] Phone Support Name Relationship Address Phone NOT Unavailable Unavailable Unavailable Allergies date description facility CODEINE [facility] NO ALLERGY INFORMATION AVAILABLE [facility] CEPHALOSPORINS [facility] NO KNOWN ALLERGIES [facility] PEANUTS [facility] CODEINE [facility] ACETAMINOPHEN [facility] PREDNISONE [facility] CEPHALEXIN [facility] CLINDAMYCIN [facility] LAMOTRIGINE [facility] PENICILLIN G [facility] BEE VENOM PROTEIN (HONEY BEE) [facility] LATEX [facility] ARIPIPRAZOLE [facility] HYDROCODONE-ACETAMINOPHEN [facility] DIVALPROEX [facility] ACETAMINOPHEN-CODEINE [facility] cephalexin [facility] Results Social History date description facility [phone]
== END 2020-05-28 05:34 | disposition home or self-care (01) ==
LOC: ED 00:46
DX: F10.139 Alcohol abuse with withdrawal, unspecified (principal); R11.2 Nausea with vomiting, unspecified; R00.0 Tachycardia, unspecified; F17.200 Nicotine dependence, unspecified, uncomplicated
CPT/HCPCS: 36415; 80053; 80320; 83690; 85025; 93005; 96361; 96365; 96366; 96375; 96376; 99283; 99284; A9270; J2060; J3411

== ENCOUNTER 2020-06-23 16:01 | Outpatient (CLI) | payer MEDICAID ==
--- NOTE | 2020-06-23 16:30 | XRAY Report ---
PROCEDURE: Knee 3 View LT INDICATIONS: FRACTURE WITH ROUTINE HEALING TECHNIQUE: 3 views of the left knee(s) were acquired. COMPARISON: None. FINDINGS: Bones: No fractures or dislocations. No suspicious bony lesions. ORIF of the proximal tibia. Soft tissues: No joint effusion. No suspicious soft tissue calcifications. IMPRESSION: Post surgical sequelae. Reviewed by: Kaitlin Crystal MD on 06/23/2020 4:28 PM PST Approved by: Kaitlin Crystal MD on 06/23/2020 4:28 PM PST Station ID: [id number]
== END 2020-06-23 23:59 | disposition home or self-care (01) ==
LOC: DI.N 16:01
PROVIDERS: ATTEND Physician Assistant
DX: S32.050D Wedge compression fracture of fifth lumbar vertebra, subsequent encounter for fracture with routine healing (principal); S82.102S Unspecified fracture of upper end of left tibia, sequela

== ENCOUNTER 2020-08-08 07:00 | Outpatient (CLI) | payer MEDICAID ==
--- NOTE | 2020-08-08 16:32 | XRAY Report ---
PROCEDURE: Tib/Fib LT INDICATIONS: NONDISPLACED FX OF L TIBIAL TUBEROSITY TECHNIQUE: 2 views of the tibia and fibula were acquired. COMPARISON: X-ray knee 06/23/2020 FINDINGS: Bones: No fractures or dislocations. No suspicious bony lesions. Stable appearance of proximal tib ia ORIF. Screw holes are noted within the mid and distal aspect suggestive of prior screw removal. Soft tissues: No suspicious soft tissue calcifications or masses. IMPRESSION: ORIF with hardware appearing intact and no change in alignment. Reviewed by: Marisela Segal MD on 08/08/2020 4:31 PM PDT Approved by: Marisela Segal MD on 08/08/2020 4:31 PM PDT Station ID: [id number]
== END 2020-08-08 23:59 | disposition home or self-care (01) ==
LOC: DI.N 07:00
PROVIDERS: ATTEND Physician Assistant
DX: S82.155A Nondisplaced fracture of left tibial tuberosity, initial encounter for closed fracture (principal)